=== PATIENT | female | born 1955 | race Caucasian/White ===

== ENCOUNTER 2016-11-01 10:09 | Emergency (ER) | payer MEDICAID, OTHER ==
[~2016-11-01] VITALS: Ht 157.5 cm; Wt 62.0 kg
[2016-11-01 10:11] VITALS: Ht 157.5 cm; Wt 62.0 kg
--- NOTE | 2016-11-01 10:27 | ERA ---
ER Documentation Chief Complaint Date/Time DATE: 11/01/16 TIME: 10:24 Chief Complaint "i feel like i want to ", c/o feeling depressed x 1 week HPI This is a 61-year-old female with a history of bipolar disorder and depression. She says she started taking Zoloft about a month ago he started feeling suicidal thoughts and feelings 1 week ago. She says she "just wants to ". She does not have a specific plan but has a lot of thoughts of suicide. Patient has had a prior suicide attempt in the 1980s by trying to cut her wrists in the past. Patient takes Depakote, Zyprexa, Zoloft She has no physical complaints such as headache numbness weakness chest pain shortness of breath abdominal pain. ROS All systems reviewed and are negative except as per history of present illness. Allergies Allergies: Coded Allergies: No Known Allergy (Unverified , 11/01/16) FmHx Family History: No coronary disease Physical Exam Vitals Vital Signs Date Time Temp Pulse Resp B/P Pulse Ox O2 Delivery O2 Flow Rate FiO2 11/01/16 10:11 98.7 85 18 118/75 96 Physical Exam Const: Well-developed, well-nourished Head: Atraumatic, normocephalic Eyes: Normal Conjunctiva, PERRLA, EOMI, normal sclera, no nystagmus ENT: Normal External Ears, Nose and Mouth, moist mucus membranes. Neck: Full range of motion. No meningismus, no lymphadenopathy. Resp: Clear to auscultation bilaterally, no wheezing, rhonchi, rales Cardio: Regular rate and rhythm, no murmurs, S1 S2 present Abd: Soft, non tender x 4, non distended. Normal bowel sounds, no guarding or rebound, no pulsitile abdominal masses or bruits Skin: No petechiae or rashes, no ecchymosis , no maculopapular rash Back: No midline or flank tenderness Ext: No cyanosis, or edema, FROM x 4, normal inspection, neurovascularly intact x 4 Neur: Awake and alert, STR 5/5 x 4, sensation intact x 4, no focal findings, cerebellum intact Psych: Depressed, admits to suicidal ideation Procedures/MDM Patient may have suicidal thoughts as a side effect of Zoloft or possibly sometimes taking SSRI can make bipolar symptoms worse however she is not having bipolar swings We will get blood work started and admit her for inpatient psych help Departure Diagnosis: Primary Impression: Suicidal ideation Condition: Stable LYNN AUGUST DO Nov 01, 2016 10:27
[2016-11-01 11:08] LABS: BASOPHILS % 0.8 % (0.0-2.0); EOSINOPHILS # 0.2 10^3/ul (0.0-0.5); EOSINOPHILS % 3.8 % (0.0-7.0); HEMATOCRIT 38.6 % (37.0-47.0); HEMOGLOBIN 12.8 g/dl (12.0-16.0); LYMPHOCYTES # 1.2 10^3/ul (0.8-2.9); LYMPHOCYTES % 30.2 % (15.0-51.0); MEAN CORPUSCULAR HEMOGLOBIN 32.3 pg (29.0-33.0); MEAN CORPUSCULAR HGB CONC 33.2 g/dl (32.0-37.0); MEAN CORPUSCULAR VOLUME 97.5 fl (82.0-101.0); MEAN PLATELET VOLUME 9.5 fl (7.4-10.4); MONOCYTE # 0.4 10^3/ul (0.3-0.9); MONOCYTES % 10.2 % (0.0-11.0); NEUTROPHIL # 2.1 10^3/ul (1.6-7.5); NEUTROPHILS % 54.5 % (39.0-77.0); PLATELET COUNT 187 10^3/UL (140-415); RED BLOOD COUNT 3.96 10^6/ul (4.20-5.40); RED CELL DISTRIBUTION WIDTH 12.7 % (11.5-14.5); WHITE BLOOD COUNT 3.9 10^3/ul (4.8-10.8)
[2016-11-01] MEDS ORDERED: ARIPIPRAZOLE 5 MG TAB PO STA (11:17)
[2016-11-01 11:28] LABS: ALANINE AMINOTRANSFERASE 22 IU/L (13-69); ALBUMIN 4.3 g/dl (3.3-4.9); ALBUMIN/GLOBULIN RATIO 1.59; ALKALINE PHOSPHATASE 125 IU/L (42-121); ANION GAP 14 (8-16); ASPARTATE AMINO TRANSFERASE 16 IU/L (15-46); BILIRUBIN,INDIRECT 0.3 mg/dl (0-1.1); BILIRUBIN,TOTAL 0.3 mg/dl (0.2-1.3); BLOOD UREA NITROGEN 24 mg/dl (7-20); CARBON DIOXIDE 28 mmol/L (21-31); CHLORIDE 105 mmol/L (97-110); CREATININE 0.89 mg/dl (0.44-1.00); GLUCOSE 86 mg/dl (70-220); POTASSIUM 4.6 mmol/L (3.5-5.1); SODIUM 142 mmol/L (135-144)
[2016-11-01 11:32] LABS: ACETAMINOPHEN < 10.0 ug/ml (10.0-30.0)
[2016-11-01 11:33] LABS: ETHANOL < 10.0 mg/dl; SALICYLATE < 1.0 mg/dl (5.0-30.0)
[2016-11-01 12:28] LABS: BENZODIAZEPINES Negative (NEGATIVE)
[2016-11-01 12:33] LABS: BARBITURATES Negative (NEGATIVE); CANNABINOIDS Negative (NEGATIVE); COCAINE Negative (NEGATIVE)
[2016-11-01 12:34] LABS: OPIATES Negative (NEGATIVE)
--- NOTE | 2016-11-01 14:30 | PSY ---
Date/Time of Note Date/Time of Note DATE: 11/01/16 TIME: 17:28 Psychiatric Subjective Eval Consent Pt consented to telemedicine: Yes Subjective Evaluation Patient location: emergency Chief Complaint: "i feel like i want to ", c/o feeling depressed x 1 week History of present illness 61 yo female with BAD, was manic then a week ago became depressed, no desire to kill self but very much wants to so came to ED from board and care. Began zoloft a bit over a week ago. Denies drug use or psychosis. Past Psych Hx: numerous admit, one past suicide attempt PMHx: see medical record Meds: says she is compliant with VPA and olanzapine All: nkda MSE: cooperative, depressed, organized, no delusions no avh passive si Imp: 61 yo female with BAD, depressed, passive si -vol psych admit -continue current doses of vpa and olanzapine -stop zoloft -for moderate agitation zyprexa 5mg po prn Medical history Problems Medical Problems: (1) Suicidal ideation Status: Acute Allergies: Coded Allergies: No Known Allergy (Unverified , 11/01/16) Psychiatric Objective Eval Mental Status Examination: Laboratory Results Laboratory Tests Test 11/01/16 10:53 11/01/16 11:15 White Blood Count 3.910^3/ul Red Blood Count 3.9610^6/ul Hemoglobin 12.8g/dl Hematocrit 38.6% Mean Corpuscular Volume 97.5fl Mean Corpuscular Hemoglobin 32.3pg Mean Corpuscular Hemoglobin Concent 33.2g/dl Red Cell Distribution Width 12.7% Platelet Count 81847^3/UL Mean Platelet Volume 9.5fl Neutrophils % 54.5% Lymphocytes % 30.2% Monocytes % 10.2% Eosinophils % 3.8% Basophils % 0.8% Nucleated Red Blood Cells % 0.0/100WBC Neutrophils # 2.110^3/ul Lymphocytes # 1.210^3/ul Monocytes # 0.410^3/ul Eosinophils # 0.210^3/ul Basophils # 0.010^3/ul Nucleated Red Blood Cells # 0.010^3/ul Sodium Level 142mmol/L Potassium Level 4.6mmol/L Chloride Level 105mmol/L Carbon Dioxide Level 28mmol/L Anion Gap 14 Blood Urea Nitrogen 24mg/dl Creatinine 0.89mg/dl Glucose Level 86mg/dl Calcium Level 10.0mg/dl Total Bilirubin 0.3mg/dl Direct Bilirubin 0.00mg/dl Indirect Bilirubin 0.3mg/dl Aspartate Amino Transf (AST/SGOT) 16IU/L Alanine Aminotransferase (ALT/SGPT) 22IU/L Alkaline Phosphatase 125IU/L Total Protein 7.0g/dl Albumin 4.3g/dl Globulin 2.70g/dl Albumin/Globulin Ratio 1.59 Salicylates Level < 1.0mg/dl Acetaminophen Level < 10.0ug/ml Ethyl Alcohol Level < 10.0mg/dl Urine Opiates Screen Negative Urine Barbiturates Negative Urine Amphetamines Screen Negative Urine Benzodiazepines Screen Negative Urine Cocaine Screen Negative Urine Cannabinoids Negative ALTAGRACIA PASTRANA Nov 01, 2016 14:30
--- NOTE | 2016-11-01 17:50 | QN ---
Documentation Comment The patient has been evaluated by the ER physician and is medically cleared for psychiatric placement at this time. LIZ PELLETIER MD Nov 01, 2016 17:50
[2016-11-01 21:56] VITALS: BP 96/59; PULSE 71; RESP 15; TEMP 97.9
== END 2016-11-01 22:48 ==
LOC: E/R 10:09
DX: F32.9 Major depressive disorder, single episode, unspecified (principal); R45.851 Suicidal ideations
CPT/HCPCS: 80053; 80306; 80307; 85025; Z7610; 36415